=== PATIENT | female | born 1970 | race Caucasian/White ===

== ENCOUNTER → 2017-01-01 | Outpatient (CLI) | payer OTHER ==
[~2017-01-01] MED LIST: CITA20TA9 PO
--- NOTE | 2017-01-01 16:44 | MAMMOGRAPHY REPORT ---
BILATERAL DIGITAL SCREENING MAMMOGRAM TOMOSYNTHESIS WITH CAD: 01/01/2017 CLINICAL HISTORY: Routine screening. Patient has no complaints. TECHNIQUE: Bilateral CC and MLO views of the breasts with and without implant displacement views wer e obtained. Tomosynthesis was also performed on the implant displaced views. Current study was als o evaluated with a Computer Aided Detection (CAD) system. COMPARISON: Comparison is made to exams dated: 12/30/2015 mammogram, 12/29/2014 mammogram, 07/22/2013 ma mmogram, 07/11/2011 mammogram, 07/12/2012 mammogram, and 07/25/2013 ultrasound - [facility]. BREAST COMPOSITION: The tissue of both breasts is heterogeneously dense, which may obscure small ma sses. FINDINGS: Bilateral subpectoral silicone implants are stable compared to prior exams. There is stab le asymmetry in the lateral left breast on the implant displaced CC view. No suspicious mass, archi tectural distortion or cluster of microcalcifications is seen. IMPRESSION: ACR BI-RADS CATEGORY 1: NEGATIVE There is no mammographic evidence of malignancy. A 1 year screening mammogram is recommended. The p atient will receive written notification of the results. Approximately 10% of breast cancers are not detected with mammography. A negative mammographic repor t should not delay biopsy if a clinically suggestive mass is present. Jenny Torres M.D. ay/:01/01/2017 16:25:32 Cold Meat Cook: Jojo BENITEZ(R)(M), [facility] letter sent: Normal 1/2 BI-RADS Code: ACR BI-RADS Category 1: Negative
== END | disposition home or self-care (01) ==
LOC: C.MAMM 14:22
PROVIDERS: ATTEND Obstetrics & Gynecology
DX: Z12.31 Encounter for screening mammogram for malignant neoplasm of breast (principal); Z98.82 Breast implant status

== ENCOUNTER → 2017-08-08 | Outpatient (CLI) | payer OTHER | END | disposition home or self-care (01) | LOC: C.PATHSPEC 16:55 | PROVIDERS: ATTEND Dermatology | DX: L57.0 Actinic keratosis (principal); D22.61 Melanocytic nevi of right upper limb, including shoulder ==

== ENCOUNTER → 2018-01-11 | Outpatient (CLI) | payer OTHER ==
--- NOTE | 2018-01-14 14:50 | MAMMOGRAPHY REPORT ---
BILATERAL DIGITAL SCREENING MAMMOGRAM TOMOSYNTHESIS WITH CAD: 01/11/2018 CLINICAL HISTORY: Patient presents for routine screening. S/P bilateral augmentation. TECHNIQUE: Breast tomosynthesis in addition to standard 2D mammography was performed. Current study was also evaluated with a Computer Aided Detection (CAD) system. COMPARISON: Comparison is made to exams dated: 01/01/2017 mammogram, 12/30/2015 mammogram, 12/29/2014 mamm ogram, 07/22/2013 mammogram, 07/12/2012 mammogram, and 07/11/2011 mammogram - [facility] er. BREAST COMPOSITION: The tissue of both breasts is heterogeneously dense, which may obscure small mas ses. FINDINGS: No suspicious masses, calcifications, or areas of architectural distortion are noted in ei ther breast. There has been no significant interval change compared to prior exams. Bilateral subpec jose silicone implants are stable in appearance. Asymmetry in the left lateral breast on the cc vie w is stable compared to prior exams. IMPRESSION: ACR BI-RADS CATEGORY 2: BENIGN There is no mammographic evidence of malignancy. A 1 year screening mammogram is recommended. The pa tient will receive written notification of the results. Approximately 10% of breast cancers are not detected with mammography. A negative mammographic report should not delay biopsy if a clinically suggestive mass is present. Meghan Oneal M.D. ah/:01/11/2018 15:39:02 Arranging [employer] Director: Carleen WILDER)(Ayaan), [facility] letter sent: Normal 1/2 BI-RADS Code: ACR BI-RADS Category 2: Benign
== END | disposition home or self-care (01) ==
LOC: C.MAMM 14:54
PROVIDERS: ATTEND Obstetrics & Gynecology
DX: Z12.31 Encounter for screening mammogram for malignant neoplasm of breast (principal); Z98.82 Breast implant status

== ENCOUNTER → 2018-02-06 | Outpatient (CLI) | payer OTHER | END | disposition home or self-care (01) | LOC: C.PATHSPEC 18:05 | PROVIDERS: ATTEND Dermatology | DX: D22.5 Melanocytic nevi of trunk (principal) ==